=== PATIENT | female | born 1975 | race Caucasian/White ===

== ENCOUNTER → 2017-06-20 | Outpatient (CLI) | payer OTHER | LOC: CIMAGING 11:11 | PROVIDERS: ATTEND Nurse Practitioner | DX: R05 Cough (principal); R61 Generalized hyperhidrosis | CPT/HCPCS: 71046-PO ==

== ENCOUNTER → 2017-08-15 | Outpatient (CLI) | payer OTHER | LOC: CIMAGING 08:43 | PROVIDERS: ATTEND Nurse Practitioner | DX: R93.8 Abnormal findings on diagnostic imaging of other specified body structures (principal) | CPT/HCPCS: 76536-PO ==